=== PATIENT | male | born 1975 | race Caucasian/White ===

== ENCOUNTER → 2020-12-29 | Outpatient (CLI) | payer OTHER ==
[~2020-12-29] MED LIST: ASPIRIN EC81 MG PO; ATORVASTATIN CA80 MG PO; BACTRIM DS TAB1 EACH PO; EFFIENT10 MG PO; FENOFIBRATE160 MG PO; IBU800 MG PO; KEFLEX500 MG PO; LISINOPRIL10 MG PO; LISINOPRIL20 MG PO; LOPRESSOR 25 MG25 MG PO; NICOTINE PATCH1 EAC2 TD; NITROGLYCERIN0.4 MG SL; ZETIA 10 MG TAB10 MG PO
== END ==
LOC: HEART 5 08:11
DX: I25.10 Atherosclerotic heart disease of native coronary artery without angina pectoris (principal); I25.2 Old myocardial infarction
CPT/HCPCS: 78452; A9502